=== PATIENT | male | born 1955 | race Caucasian/White ===

== ENCOUNTER 2020-08-04 07:40 | Outpatient (REF) | payer MEDICARE, SELFPAY ==
[2020-08-04 08:06] LABS: COVID-19 Test Negative (Negative); IDNOW Serial# 55D5AD1C
== END 2020-08-04 07:41 | disposition home or self-care (01) ==
LOC: HO.LAB 07:40
PROVIDERS: Visit Provider Internal Medicine
DX: Z20.822 Contact with and (suspected) exposure to COVID-19 (principal)
CPT/HCPCS: 36415; 87635; C9803

== ENCOUNTER 2020-10-20 09:51 | Outpatient (REF) | payer MEDICARE, SELFPAY | END 2020-10-20 09:52 | disposition home or self-care (01) | LOC: HO.LAB 09:51 | PROVIDERS: Visit Provider Internal Medicine | DX: Z20.822 Contact with and (suspected) exposure to COVID-19 (principal) | CPT/HCPCS: C9803; U0003; U0005 ==

== ENCOUNTER 2022-03-09 06:43 | Outpatient (REF) | payer OTHER, SELFPAY ==
[2022-03-09 06:48] LABS: MANUAL DIFF FLAG NO
[2022-03-09 07:32] LABS: Basophils Percent Auto 0.3 % (0-2); Eosinophils Absolute Auto 0.1 X10*3/uL (0.0-0.4); Eosinophils Percent Auto 1.6 % (0-4); Hematocrit 47.7 % (42.0-52.0); Hemoglobin 15.2 g/dl (14.0-18.0); Imm Gran Abs Auto 0.03 X10*3/uL (0.00-0.03); Imm Gran Pct Auto 0.4 % (0.0-0.4); Lymphocytes Absolute Auto 1.8 X10*3/uL (1.2-4.9); Lymphocytes Percent Auto 26.5 % (20-40); Mean Corpuscular HGB Conc 31.9 g/dl (31.0-36.0); Mean Corpuscular Hemoglobin 27.2 pg (27.0-33.0); Mean Corpuscular Volume 85.3 fL (80.0-98.0); Mean Platelet Volume 9.3 fL (9.4-12.4); Monocytes Absolute Auto 0.6 X10*3/uL (0.1-1.2); Monocytes Percent Auto 8.4 % (2-11); Neutrophils Absolute Auto 4.3 x10*3/uL (2.0-8.3); Neutrophils Percent Auto 62.8 % (45-73); Platelet Count 227 X10*3/uL (160-400); Red Blood Count 5.59 X10*6/uL (4.60-5.80); Red Cell Distribution Width 13.7 % (11.0-16.0); White Blood Count 6.8 X10*3/uL (4.8-10.8)
[2022-03-09 07:35] LABS: Estimated Average Glucose 186 mg/dL; Hemoglobin A1c % 8.1 %
[2022-03-09 08:16] LABS: Alanine Aminotransferase 19 U/L (0-40); Albumin Level 4.2 g/dL (3.5-5.0); Alkaline Phosphatase 82 U/L (39-117); Anion Gap 12 (12-20); Aspartate Amino Transferase 16 U/L (5-37); Bilirubin Total 0.4 mg/dL (0.0-1.0); Blood Urea Nitrogen 13 mg/dL (9-16); Calcium 9.5 mg/dL (8.4-10.2); Carbon Dioxide 25 mmol/L (22-29); Chloride 104 mmol/L (96-108); Cholesterol 132 mg/dL; Estimated Glomerular Filt Rate > 60; Glucose Fasting 164 mg/dL (60-99); HDL Cholesterol 35 mg/dL; LDL Cholesterol Calculated 65 mg/dl; Potassium 4.3 mmol/L (3.3-5.1); Sodium 137 mmol/L (135-145); TSH reflex Free T4 1.78 uIU/mL (0.32-4.0); Total Protein 6.6 g/dL (6.5-8.0); Triglycerides 163 mg/dL; Vitamin D 25-OH Total 16.6 ng/mL (>30)
[2022-03-09 09:15] LABS: Appearance Urine Clear; Color Urine Yellow; Glucose Urine UA >=1000 mg/dL (Negative); Leukocyte Esterase Urine Negative (Negative); Nitrite Urine Negative (Negative); Specific Gravity - Urine >= 1.030 (1.005-1.025); UMIC TRIGGER UACC YES; Urine Blood Negative (Negative); Urine Ketones Negative (Negative); Urine Protein Negative (Neg-Trace)
[2022-03-09 09:23] LABS: Bacteria Urine None Seen (None Seen); Hyaline Casts Urine 0-2 /LPF (0-2); RBC Urine 0-2 /HPF (0-2); Squamous Epithelial Cell Urine 0-2 /HPF (0-2); WBC Urine 0-5 /HPF (0-5)
[2022-03-09 09:34] LABS: Creatinine Urine 98.18 mg/dL; Microalbum/Creatinine Ratio Ur 47.8 ug/mg cr
== END 2022-03-09 06:44 | disposition home or self-care (01) ==
LOC: HO.LAB 06:43
PROVIDERS: PCP Internal Medicine; Visit Provider Internal Medicine
DX: E11.9 Type 2 diabetes mellitus without complications (principal); E78.00 Pure hypercholesterolemia, unspecified; E55.9 Vitamin D deficiency, unspecified; I10 Essential (primary) hypertension
CPT/HCPCS: 36415; 80053; 80061; 81001; 82043; 82306; 83036; 84443; 85025

== ENCOUNTER 2022-06-23 07:52 | Outpatient (REF) | payer OTHER, SELFPAY ==
[2022-06-23 08:21] LABS: Estimated Average Glucose 189 mg/dL; Hemoglobin A1c % 8.2 %
[2022-06-23 08:53] LABS: Alanine Aminotransferase 16 U/L (0-40); Albumin Level 4.2 g/dL (3.5-5.0); Alkaline Phosphatase 78 U/L (39-117); Anion Gap 11 (12-20); Aspartate Amino Transferase 14 U/L (5-37); Bilirubin Total 0.4 mg/dL (0.0-1.0); Blood Urea Nitrogen 17 mg/dL (9-16); Calcium 8.9 mg/dL (8.4-10.2); Carbon Dioxide 25 mmol/L (22-29); Chloride 105 mmol/L (96-108); Cholesterol 120 mg/dL; Estimated Glomerular Filt Rate > 60; Glucose Fasting 176 mg/dL (60-99); HDL Cholesterol 29 mg/dL; LDL Cholesterol Calculated 61 mg/dl; Potassium 4.3 mmol/L (3.3-5.1); Sodium 137 mmol/L (135-145); Total Protein 6.4 g/dL (6.5-8.0); Triglycerides 152 mg/dL
[2022-06-23 09:07] LABS: Vitamin D 25-OH Total 40.7 ng/mL (>30)
== END 2022-06-23 07:53 | disposition home or self-care (01) ==
LOC: HO.LAB 07:52
PROVIDERS: PCP Internal Medicine; Visit Provider Nurse Practitioner Family
DX: E11.9 Type 2 diabetes mellitus without complications (principal); E78.00 Pure hypercholesterolemia, unspecified; E55.9 Vitamin D deficiency, unspecified
CPT/HCPCS: 36415; 80053; 80061; 82306; 83036

== ENCOUNTER 2022-08-03 06:15 | Emergency (ER) | payer OTHER, SELFPAY ==
[2022-08-03 06:20] VITALS: BP 140/69; PULSE 86; RESP 18; TEMP 36.6; O2SAT 98; BMI 23.6
--- NOTE | 2022-08-03 07:04 | ED_ITS ---
HPI - General Adult General Chief complaint: Skin/Abscess/Foreign Body Stated complaint: Itchy Rash Time Seen by Provider: 08/03/22 07:02 Source: patient Mode of arrival: ambulatory Limitations: no limitations History of Present Illness HPI narrative: Patient is a 67-year-old male presenting with diffuse pruritic rash for approximately two months. He reports the rash is intensely pruritic and occasionally sore. He was seen on 06/11 and prescribed hydroxyzine and triamcinolone. He reports little relief of symptoms with this treatment. He traveled to [place] several weeks after his rash began, and went to an urgent care office there. He states that they offered to give him an injection, but then did not due to his T2DM. He denies any new medications. He denies any fevers, abdominal pain, nausea, vomiting. He denies any known tick bites. He denies any discharge or drainage from the rash. He states that the rash began on his arms and feels it is spreading. MD complaint: rash Onset (ago): month(s) Location: back, abdomen, upper extremity and lower extremity Relieving factors: none Associated symptoms: denies other symptoms Treatments prior to arrival: other (hydroxyzine/triamcinolone) Related Data Home Medications Medication Instructions Recorded Confirmed acetaminophen 500 mg tablet 500 mg PO Q6H PRN 11/23/21 07/21/22 (Tylenol Extra Strength) aspirin 81 mg tablet,delayed 81 mg PO DAILY 11/23/21 07/21/22 release Previous Rx's Medication Instructions Recorded empagliflozin 10 mg tablet 10 mg PO DAILY 90 days #90 tabs 11/23/21 (Jardiance) losartan 25 mg tablet 25 mg PO DAILY 90 days #90 tabs 11/23/21 metformin 500 mg tablet,extended 1,000 mg PO BID 90 days #360 tabs 11/23/21 release 24 hr pioglitazone 30 mg tablet 30 mg PO DAILY 90 days #90 tabs 11/23/21 tadalafil 20 mg tablet 10 mg PO DAILY 30 days #15 tabs 11/23/21 cholecalciferol (vitamin D3) 50 50 mcg PO DAILY #90 tabs 03/11/22 mcg (2,000 unit) tablet glipizide 10 mg tablet, extended 10 mg PO DAILY 90 days #90 tabs 03/11/22 release 24 hr rosuvastatin 10 mg tablet 10 mg PO DAILY 90 days #90 tabs 06/02/22 hydroxyzine HCl 10 mg tablet 10 mg PO BEDTIME PRN itching #10 06/11/22 tabs triamcinolone acetonide 0.1 % 1 appl topical BID #454 grams 06/11/22 topical cream Rybelsus 3 mg tablet (semaglutide) 3 mg PO DAILY 30 days #30 tabs 07/21/22 cetirizine 10 mg tablet 10 mg PO DAILY allergic reaction / 07/21/22 rash 30 days #30 tabs montelukast 10 mg tablet 10 mg PO BEDTIME 30 days #30 tabs 07/21/22 prednisone 20 mg tablet 20 mg PO DAILY #5 tabs 08/03/22 Allergies Allergy/AdvReac Type Severity Reaction Status Date / Time atorvastatin [From LIPITOR] AdvReac Intermediate MUSCLE PAIN Verified 08/03/22 06:24 pravastatin [PRAVASTATIN] AdvReac Intermediate ELEVATED Verified 08/03/22 06:24 LIVER ENZYMES Review of Systems 2 Review of Systems: As per HPI Yes all other systems are reviewed and are negative Constitutional: Constitutional: Reports as per HPI PMFSH Past Medical History Medical History Benign essential hypertension Benign prostatic hyperplasia with urinary frequency Chronic pain of right lower extremity Diabetes mellitus History of kidney stones Pure hypercholesterolemia Surgical History H/O shoulder surgery History of surgery on lower extremity Family History Family History Mother No problems noted. Father Emphysema lung Social History Social History Housing: House Alcohol intake: never Patient Tobacco Use Status: Never used Tobacco Smoked in Last 30 Days: No e-Cigarette/Vaping Use: Never Used Second Hand Smoke Exposure: No Use of substances other than those prescribed or required for medical reasons: No Advance Directives: No Advance Directives Information Provided: Yes service: Yes Current occupational status: retired Cognitive needs: No Hearing needs: No Vision needs: Yes Physical Exam ED Vital Signs: Vital Signs - 24 hr 08/03/22 06:20 Temperature 98 F Pulse Rate 86 Respiratory Rate 18 Blood Pressure 140/69 H Pulse Oximetry 98 Oxygen Delivery Method Room Air BMI result Body Mass Index 23.6 Const General: cooperative, healthy appearing and no acute distress Orientation/consciousness: oriented to person, oriented to place, oriented to time and patient oriented x3 Limitations: no limitations HENMT Head: Yes normocephalic and Yes atraumatic Ears: external ears normal General nose exam: Normal external nose present Face and sinus: Yes face symmetric Mouth: Normal oral and palatal mucosa present (no sores or lesions), oropharynx normal and moist mucous membranes Throat: Yes uvula midline Eyes Pupils: Equal, round and reactive pupils present Neck Neck: Yes normal visual inspection and Yes supple Resp Effort & Inspection: normal respiratory effort and able to speak in complete sentences Auscultation: clear to auscultation bilaterally Cardio Rate: regular rate Rhythm: regular rhythm Heart sounds: S1 normal heart sound present and S2 normal heart sound present GI Palpation (GI): Soft to palpation and nontender Auscultation: normoactive bowel sounds General: Yes no CVA tenderness Back/Spine/Pelvis Back: no CVA tenderness Skin Other: Multiple areas of erythematous, annular rash to trunk, upper and lower extremities without discharge or drainage. No petechiae, no sloughing. Negative Nikolsky sign. No bullae. No rash to palms/soles. General skin exam: elasticity normal and turgor normal Neuro General: oriented to person, oriented to place, oriented to time, patient oriented x3, moves all extremities, no focal motor deficits and CN's II-XI intact bilaterally Cranial nerves: Yes Equal, round and reactive pupils present Cognition (Neuro): normal cognition Extrem General: Yes full ROM, Yes no pedal edema and Yes no calf tenderness Psych Mental Status: mental status grossly normal Affect: normal affect Thought process: Normal thought process present Medical Decision Making Medical Decision Making MDM Narrative: Patient is a 67-year-old male presenting with diffuse pruritic rash for approximately two months. On exam patient is awake, A+Ox3, nontoxic appearing, normal neurological exam, multiple areas of annular and linear erythema to trunk and all extremities. No rash noted to face. Likely urticaria given history and physical exam findings. No red flag symptoms to suggest DRESS, SJS/TEN, TTP/DIC, necrotizing fasciitis, SSSS, TSS, anaphylaxis. Will treat patient with short course of prednisone and refer to dermatology. Return precautions discussed at bedside. Discharge Plan Discharge Clinical Impression: Urticaria Patient Disposition: Home, Self-Care Instructions: Urticaria (ED) Additional Instructions: You were evaluated in the emergency department for your rash. Your evaluation does not suggest evidence of a medical condition requiring emergent intervention at this time. You are being prescribed a short course of prednisone which is a steroid. You should also begin taking cetirizine, which is an zyst-gur-kyqryoy antihistamine. Begin by taking this medication once daily in the morning. If this does not decrease your symptoms, you can increase the dose to twice daily. You should also wash all clothing and bedding in very hot water WITHOUT soap. Avoid extremes of temperature when showering and use lukewarm water. Stop using the topical cream that you were prescribed. You are being referred to a bondactor machine operator, please follow up with them for further evaluation of your symptoms. Prescriptions: New prednisone 20 mg tablet 20 mg PO DAILY Qty: 5 0RF No Action rosuvastatin 10 mg tablet 10 mg PO DAILY 90 Days Qty: 90 1RF aspirin 81 mg tablet,delayed release (DR/EC) 81 mg PO DAILY acetaminophen [Tylenol Extra Strength] 500 mg tablet 500 mg PO Q6H PRN Jardiance 10 mg tablet 10 mg PO DAILY 90 Days Qty: 90 1RF losartan 25 mg tablet 25 mg PO DAILY 90 Days Qty: 90 1RF metformin 500 mg tablet extended release 24 hr 1,000 mg PO BID 90 Days Qty: 360 1RF pioglitazone 30 mg tablet 30 mg PO DAILY 90 Days Qty: 90 1RF Hold Instructions: Doctor's Order tadalafil 20 mg tablet 10 mg PO DAILY 30 Days Qty: 15 3RF cholecalciferol (vitamin D3) 50 mcg (2,000 unit) tablet 50 mcg PO DAILY Qty: 90 0RF glipizide 10 mg tablet extended release 24hr 10 mg PO DAILY 90 Days Qty: 90 1RF Hold Instructions: Doctor's Order hydroxyzine HCl 10 mg tablet 10 mg PO BEDTIME PRN (Reason: itching) Qty: 10 0RF triamcinolone acetonide 0.1 % cream 1 appl topical BID Qty: 454 0RF Rx Instructions: for up to 14 days, use on affected areas covering bilateral arms, trunk, torso, and back. Rybelsus 3 mg tablet 3 mg PO DAILY 30 Days Qty: 30 3RF cetirizine 10 mg tablet 10 mg PO DAILY 30 Days Qty: 30 2RF montelukast 10 mg tablet 10 mg PO BEDTIME 30 Days Qty: 30 2RF Referrals: Abhijeet Auguste MD [Physician] -
== END 2022-08-03 08:03 | disposition home or self-care (01) ==
PROVIDERS: Emergency Provider Emergency Medicine Emergency Medical Services
DX: L50.9 Urticaria, unspecified (principal); L29.9 Pruritus, unspecified; E11.9 Type 2 diabetes mellitus without complications
CPT/HCPCS: 99283

== ENCOUNTER 2022-10-30 07:12 | Outpatient (REF) | payer OTHER, SELFPAY ==
[2022-10-30 07:26] LABS: MANUAL DIFF FLAG NO
[2022-10-30 07:50] LABS: Basophils Percent Auto 0.8 % (0-2); Eosinophils Absolute Auto 0.2 X10*3/uL (0.0-0.4); Eosinophils Percent Auto 3.2 % (0-4); Hematocrit 49.5 % (42.0-52.0); Hemoglobin 16.1 g/dl (14.0-18.0); Imm Gran Abs Auto 0.02 X10*3/uL (0.00-0.03); Imm Gran Pct Auto 0.4 % (0.0-0.4); Lymphocytes Absolute Auto 1.8 X10*3/uL (1.2-4.9); Lymphocytes Percent Auto 36.9 % (20-40); Mean Corpuscular HGB Conc 32.5 g/dl (31.0-36.0); Mean Corpuscular Hemoglobin 27.7 pg (27.0-33.0); Mean Corpuscular Volume 85.1 fL (80.0-98.0); Mean Platelet Volume 9.2 fL (9.4-12.4); Monocytes Absolute Auto 0.5 X10*3/uL (0.1-1.2); Monocytes Percent Auto 9.8 % (2-11); Neutrophils Absolute Auto 2.4 x10*3/uL (2.0-8.3); Neutrophils Percent Auto 48.9 % (45-73); Platelet Count 215 X10*3/uL (160-400); Red Blood Count 5.82 X10*6/uL (4.60-5.80); Red Cell Distribution Width 14.2 % (11.0-16.0)
[2022-10-30 07:58] LABS: Estimated Average Glucose 203 mg/dL; Hemoglobin A1c % 8.7 %
[2022-10-30 08:22] LABS: Alanine Aminotransferase 19 U/L (0-40); Albumin Level 4.3 g/dL (3.5-5.0); Alkaline Phosphatase 95 U/L (39-117); Anion Gap 11 (12-20); Aspartate Amino Transferase 14 U/L (5-37); Bilirubin Total 0.4 mg/dL (0.0-1.0); Blood Urea Nitrogen 11 mg/dL (9-16); Calcium 9.9 mg/dL (8.4-10.2); Carbon Dioxide 26 mmol/L (22-29); Chloride 107 mmol/L (96-108); Cholesterol 167 mg/dL; Estimated Glomerular Filt Rate > 60; Glucose Fasting 169 mg/dL (60-99); HDL Cholesterol 34 mg/dL; LDL Cholesterol Calculated 85 mg/dl; Potassium 4.2 mmol/L (3.3-5.1); Sodium 140 mmol/L (135-145); Total Protein 7.2 g/dL (6.5-8.0); Triglycerides 242 mg/dL
[2022-10-30 08:39] LABS: TSH reflex Free T4 1.34 uIU/mL (0.32-4.0); Vitamin D 25-OH Total 28.9 ng/mL (>30)
[2022-10-30 09:14] LABS: Appearance Urine Clear; Color Urine Yellow; Glucose Urine UA >=1000 mg/dL (Negative); Leukocyte Esterase Urine Negative (Negative); Nitrite Urine Negative (Negative); PH 5.5 (5.0-9.0); Specific Gravity - Urine >= 1.030 (1.005-1.025); UMIC TRIGGER UACC YES; Urine Blood Negative (Negative); Urine Ketones Negative (Negative); Urine Protein Negative (Neg-Trace)
[2022-10-30 09:19] LABS: Bacteria Urine None Seen (None Seen); Hyaline Casts Urine 0-2 /LPF (0-2); RBC Urine 0-2 /HPF (0-2); Squamous Epithelial Cell Urine 0-2 /HPF (0-2); WBC Urine 0-5 /HPF (0-5)
[2022-10-30 10:08] LABS: Microalbum/Creatinine Ratio Ur 32.1 ug/mg cr
== END 2022-10-30 07:13 | disposition home or self-care (01) ==
LOC: HO.LAB 07:12
PROVIDERS: PCP Internal Medicine; Visit Provider Internal Medicine
DX: E55.9 Vitamin D deficiency, unspecified (principal); R30.0 Dysuria; E78.00 Pure hypercholesterolemia, unspecified; E11.9 Type 2 diabetes mellitus without complications; I10 Essential (primary) hypertension
CPT/HCPCS: 36415; 80053; 80061; 81001; 82043; 82306; 83036; 84443; 85025